=== PATIENT | male | born 1955 | race Caucasian/White ===

== ENCOUNTER → 2024-12-05 | Outpatient (CLI) | payer MEDICARE, OTHER ==
[2024-12-05 08:50] LABS: BASO # 0.09 K/mm3 (0.02-0.10); EOS # 0.43 K/mm3 (0.04-0.40); EOS % 5.1 % (0.0-4.0); HEMOGLOBIN 15.8 g/dL (13.5-18.0); LYMPH# 3.09 K/mm3 (1.50-4.00); MEAN CELL VOLUME 94 fl (78-100); MEAN CORPUSCULAR HEMOGLOBIN 30 pg (27-31); MEAN CORPUSCULAR HGB CONC 32 g/dL (33-37); MEAN PLATELET VOLUME 10.4 fl (7.4-10.4); MONO # 0.92 K/mm3 (0.20-0.80); NEU # 3.83 K/mm3 (1.40-6.50); PLATELET COUNT 229 K/mm3 (130-400); WHITE BLOOD COUNT 8.4 K/mm3 (4.8-10.8)
[2024-12-05 09:03] LABS: ALBUMIN 4.1 g/dL (3.4-4.8)
[2024-12-05 09:04] LABS: CALCIUM 8.7 mg/dL (8.3-10.5)
[2024-12-05 09:06] LABS: TOTAL PROTEIN 6.9 g/dL (6.2-8.1)
[2024-12-05 09:07] LABS: TOTAL BILIRUBIN 0.3 mg/dL (0.2-1.2)
[2024-12-05 09:12] LABS: MAGNESIUM 1.95 mg/dL (1.60-2.60)
== END ==
LOC: LAB 08:22
PROVIDERS: Internal Medicine
DX: K90.9 Intestinal malabsorption, unspecified (principal); E78.2 Mixed hyperlipidemia